=== PATIENT | female | born 1960 | race Caucasian/White ===

== ENCOUNTER → 2019-04-02 | Outpatient (CLI) | payer MEDICARE ==
--- NOTE | 2019-04-02 17:31 | MR ---
EXAMINATION TYPE: MR knee LT wo con DATE OF EXAM: 04/02/2019 COMPARISON: None HISTORY: 59-year-old female with pain in left knee for 4 months, has been getting worse TECHNIQUE: Multiplanar, multisequence imaging of the left knee is performed without IV contrast. FINDINGS: ACL and PCL appear intact. Some increased signal along the femoral insertion of the LCL proper and also within the popliteus ten don. LCL complex are otherwise intact. There is also thickening with edematous change on either side of the intact MCL fibers. There is an oblique tear involving the posterior horn of the medial meniscus extending to the junctio n with the distal body. Focal cartilage injury along the mid central aspect of the medial femoral condyle with a articular bustos rface irregularity and reactive signal change. This measures 5 mm wide and 6 mm AP. Lateral meniscus appears intact. Overall lateral compartment articular cartilage volume is maintained . Mild diffuse thinning of patellofemoral compartment articular cartilage volume. No discrete chondral defect. Extensor mechanism is intact. Large knee joint effusion with some extravasating joint fluid within th e deep soft tissues. No sizable Theodore's cyst. Extensor mechanism is intact. Quadriceps tendon is bowed anteriorly due to the underlying joint effus ion. Normal popliteal artery anatomy and muscle bulk. No suspicious bone marrow replacement. IMPRESSION: 1. Oblique tear posterior horn of the medial meniscus extending to the junction with the meniscal bod y. Focal 6 x 5 mm cartilage injury along the mid central aspect of the medial femoral condyle within the medial compartment. 2. Grade 1 MCL sprain. Additional grade 1 sprains of the femoral attachment of the LCL proper and pop liteus tendon. 3. Large knee joint effusion with some of the fluid extravasating into the deep soft tissues.
== END ==
LOC: RADMRIMAIN 16:30
PROVIDERS: ATTEND Orthopaedic Surgery
DX: S83.242A Other tear of medial meniscus, current injury, left knee, initial encounter (principal); S83.412A Sprain of medial collateral ligament of left knee, initial encounter